=== PATIENT | female | born 1940 | race Caucasian/White ===

== ENCOUNTER 2021-07-13 08:27 | Inpatient (IN) | payer OTHER ==
[~2021-07-13] VITALS: Ht 162.6 cm; Wt 71.4 kg
[~2021-07-13 08:27] MED LIST: ACETAMINOPHEN325 MG PO; ALDACTONE25 MG PO; ASPIRIN EC81 MG PO; BUMEX1 MG PO; COUMADIN5 MG PO; COUMADIN6 MG PO; DUONEB 2.5-0.5M1 AMP INH; ELIQUIS5 MG PO; FLONASE ALLER15.8 ML; K-DUR20 MEQ PO; LACTINEX1 EACH PO; LEVAQUIN500 MG PO; LEVAQUIN750 MG PO; LOPRESSOR25 MG PO; NEBULIZER UNIT NEB; NORCO 5-325 TA1 EACH PO; SYMBICORT 80-10.2 GM INH; TOPROL XL100 MG PO; VENTOLIN HFA IN18 GM INH; VIBRAMYCIN100 MG PO; VIT D3 PO; ZAROXOLYN2.5 MG PO; ZYRTEC10 M3 PO
[2021-07-13 10:29] LABS: BASOPHIL 0.8 % (0-2); EOSINOPHIL 0.5 % (0-7); HCT 47.5 % (37.0-47.0); HGB 15.3 g/dl (12.5-16.0); LYMPHOCYTE 11.2 % (15-48); MCH 32.7 pg (25.0-31.0); MCHC 32.2 g/dL (32.0-36.0); MCV 101.5 fL (78.0-100.0); MONOCYTE 12.2 % (0-12); MPV 10.2 fL (6.0-9.5); NEUTROPHIL 73.5 % (41-80); NRBC 0; PLT 154 K/uL (150-400); RBC 4.68 M/uL (4.20-5.40); RDW 14.4 % (11.5-14.0); WBC 10.3 K/uL (4.0-10.5)
[2021-07-13 10:54] LABS: ALBUMIN 2.4 g/dL (3.4-5.0); BILIRUBIN - TOTAL 0.7 mg/dL (0.2-1.0); BUN/CREAT RATIO (CALC) 43.1 RATIO; CREATININE 0.58 mg/dL (0.51-0.95); GLOBULIN (CALCULATION) 4.4 g/dL; POTASSIUM 3.9 mmol/L (3.5-5.1); TOTAL PROTEIN 6.8 g/dL (6.4-8.2)
[2021-07-13 10:57] LABS: LACTIC ACID 2.6 mmol/L (0.4-1.9)
[2021-07-13 11:50] LABS: BILIRUBIN 1+ mg/dL (NEGATIVE); BLOOD 3+ Ery/uL (NEGATIVE); CLARITY CLOUDY (CLEAR); COLOR YELLOW (YELLOW); GLUCOSE (U) NORMAL (NORMAL); LEUKOCYTES 3+ Leu/uL (NEGATIVE); NITRITE POSITIVE (NEGATIVE); PROTEIN 2+ mg/dL (NEGATIVE); SPECIFIC GRAVITY 1.025 (1.001-1.030)
[2021-07-13 11:58] LABS: URINARY WBC TNTC
[2021-07-13 11:59] LABS: BACTERIA 4+; SQUAMOUS EPITHELIAL CELLS RARE
[2021-07-13] MEDS ORDERED: DAILY VALUE1 EACH PO (15:03)
[2021-07-13] MEDS ORDERED: BUMEX1 MG PO (15:07)
[2021-07-13] MEDS ORDERED: SEROQUEL 25MG T25 MG PO (15:11)
[2021-07-13] MEDS ORDERED: VENELEX OINTM56.7 GM TOP (15:11)
[2021-07-13] MEDS ORDERED: DEPAKOTE SPRIN125 M2 PO (15:12)
[2021-07-13] MEDS ORDERED: NEURONTIN100 MG PO (15:12)
[2021-07-13] MEDS ORDERED: COLACE100 MG PO (15:13)
[2021-07-13] MEDS ORDERED: FOLIC ACID1 MG PO (15:13)
[2021-07-13] MEDS ORDERED: TRAMADOL HCL50 MG PO (15:14)
[2021-07-13] MEDS ORDERED: CLOTRIMAZOLE45 G1 TOP (15:15)
[2021-07-14 06:22] LABS: BASOPHIL 0.4 % (0-2); EOSINOPHIL 0 % (0-7); HCT 45.4 % (37.0-47.0); HGB 14.9 g/dl (12.5-16.0); LYMPHOCYTE 6.6 % (15-48); MCHC 32.8 g/dL (32.0-36.0); MCV 100.4 fL (78.0-100.0); MONOCYTE 8.5 % (0-12); MPV 11.2 fL (6.0-9.5); NEUTROPHIL 83.8 % (41-80); NRBC 0; PLT 141 K/uL (150-400); RBC 4.52 M/uL (4.20-5.40); RDW 14.1 % (11.5-14.0); WBC 12.8 K/uL (4.0-10.5)
[2021-07-14 06:51] LABS: BUN/CREAT RATIO (CALC) 47.6 RATIO; CREATININE 0.63 mg/dL (0.51-0.95); MAGNESIUM 1.6 mg/dL (1.8-2.4); POTASSIUM 3.7 mmol/L (3.5-5.1)
--- NOTE | 2021-07-14 14:15 | NUR ---
07/14/21 [facility] will accept patient back. A new COVID test is not required. Dr. Herrera reports family to have requested Palliative Care at [facility]. [facility] has agreed. Laurie Huggins, shampoo person, was informed that the referral was made to [facility] for Palliative Care.
[2021-07-15] MEDS ORDERED: ALPRAZOLAM PO/SL (11:19)
[2021-07-15] MEDS ORDERED: MORPHINE 110 MG/0.5 PO/SL (11:19)
== END 2021-07-15 15:18 | DRG 871 ==
LOC: FER 08:27 → FTCU 12:59
PROVIDERS: Emergency Medicine; ADMIT Internal Medicine
PROC: 3E03329 Introduction of Other Anti-infective into Peripheral Vein, Percutaneous Approach (ICD-10-PCS; principal; 2021-07-13)
PROC: 5A09357 Assistance with Respiratory Ventilation, Less than 24 Consecutive Hours, Continuous Positive Airway Pressure (ICD-10-PCS; 2021-07-13)
PROC: 5A09357 Assistance with Respiratory Ventilation, Less than 24 Consecutive Hours, Continuous Positive Airway Pressure (ICD-10-PCS; 2021-07-14)
DX: A41.9 Sepsis, unspecified organism (principal); J18.9 Pneumonia, unspecified organism; G93.41 Metabolic encephalopathy; J96.22 Acute and chronic respiratory failure with hypercapnia; J96.21 Acute and chronic respiratory failure with hypoxia; I50.33 Acute on chronic diastolic (congestive) heart failure; N30.01 Acute cystitis with hematuria; Z66 Do not resuscitate; Z51.5 Encounter for palliative care; R65.20 Severe sepsis without septic shock; I11.0 Hypertensive heart disease with heart failure; F03.90 Unspecified dementia, unspecified severity, without behavioral disturbance, psychotic disturbance, mood disturbance, and anxiety; I48.91 Unspecified atrial fibrillation; J44.9 Chronic obstructive pulmonary disease, unspecified; M81.0 Age-related osteoporosis without current pathological fracture; L89.322 Pressure ulcer of left buttock, stage 2; Z88.0 Allergy status to penicillin; Z88.1 Allergy status to other antibiotic agents; Z99.81 Dependence on supplemental oxygen
CPT/HCPCS: 36415; 36600; 70450; 71045; 80048; 80053; 81001; 82803; 83605; 83735; 83880; 84145; 84484; 85025; 86140; 87040; 87076; 87088; 87186; 93005; 94640; 94660; 94762; 96365; J0456; J0696; J1160; J2270; J2405; J7030; J7050